=== PATIENT | female | born 1960 | race Caucasian/White ===

== ENCOUNTER 2020-07-17 23:56 | Emergency (ER) | payer MEDICAID ==
[~2020-07-17] VITALS: Ht 165.1 cm; Wt 56.7 kg
--- NOTE | 2020-07-18 00:18 | NUR ---
HIGH BLOOD SUGAR IN 600'S AT HOME, D/C FROM [facility] UNABLE TO CONTROL DM D/T CHANGE IN INSURANCE LAST A1C 13 TO ER BED 1
[2020-07-18] MEDS ORDERED: IV NS 0.9% 1,000 ML IV ONE ×2 (00:30→02:00)
[2020-07-18] MEDS ORDERED: INSULIN REGULAR, HUMAN 100 UNIT/ML 10 ML VIAL IV ONE ×2 (00:30→02:00)
[2020-07-18] MEDS ORDERED: INSULIN REGULAR, HUMAN 100 UNIT/ML 10 ML VIAL ONE (00:43)
[2020-07-18 00:52] LABS: BILIRUBIN,URINE NEGATIVE (NEGATIVE); COLOR,URINE YELLOW (YELLOW); LEUKOCYTE ESTERASE ,URINE NEGATIVE (NEGATIVE); NITRITE, URINE NEGATIVE (NEGATIVE); PROTEIN,URINE NEGATIVE (NEGATIVE); UGLUCOSE >=1000 mg/dL (NEGATIVE); UROBILINOGEN,URINE 0.2 EU/dL (0.2)
[2020-07-18 00:55] LABS: BASOPHILS % (AUTO) 0.9 % (0.0-2.0); EOSINOPHILS % (AUTO) 1.5 % (0.0-6.0); HEMATOCRIT 41 % (33-45); HEMOGLOBIN 13.4 g/dL (11.5-14.8); LYMPHOCYTES # (AUTO) 1.9 /CMM (0.8-4.8); LYMPHOCYTES % (AUTO) 33.7 % (20.0-44.0); MEAN CORPUSCULAR HGB CONC 33 g/dl (31.0-36.0); MEAN CORPUSCULAR VOLUME 93 fL (82-100); MONOCYTES # (AUTO) 0.5 /CMM (0.1-1.30); MONOCYTES % (AUTO) 8.2 % (2.0-12.0); NEUTROPHILS # (AUTO) 3.1 /CMM (1.8-8.9); NEUTROPHILS % (AUTO) 55.7 % (43.0-81.0); PLATELET COUNT (AUTO) 155 /CMM (150-450); RED BLOOD CELL COUNT(AUTO) 4.41 MIL/uL (4.0-5.2); WHITE BLOOD COUNT (AUTO) 5.7 K/uL (4.3-11.0)
[2020-07-18 01:02] LABS: BACTERIA,URINE None seen /HPF (None Seen); MUCUS,URINE Few /LPF (None Seen); RBC,URINE 0-2 /HPF (0-2); SQUAMOUS EPITHELIAL CELL,UR Moderate /HPF (None Seen)
[2020-07-18 01:22] LABS: CALCIUM, SERUM 8.9 mg/dL (8.5-10.1); CARBON DIOXIDE 25 mmol/L (21-32); CHLORIDE 95 mmol/L (98-107); CREATININE 1.1 mg/dL (0.6-1.3); POTASSIUM 4.2 mmol/L (3.5-5.1); SODIUM SERUM 132 mmol/L (136-145); UREA NITROGEN, BLOOD 24 mg/dL (7-18)
[2020-07-18 01:25] LABS: ALANINE AMINOTRANSFERASE 57 U/L (12-78); ALBUMIN 3.5 g/dL (3.4-5.0); ALKALINE PHOSPHATASE 104 U/L (46-116); ASPARTATE AMINOTRANSFERASE 31 U/L (15-37); BILIRUBIN,TOTAL 0.3 mg/dL (0.2-1.0); GLUCOSE 615 mg/dL (74-106); TOTAL PROTEIN, SERUM 6.6 g/dL (6.4-8.2)
--- NOTE | 2020-07-18 02:33 | NUR ---
IV removed. Catheter intact and site benign. Pressure and 4x4 applied to site. No bleeding noted.Patient discharged to home in stable condition. Written and verbal after care instructions given. Patient verbalizes understanding of instruction.
[2020-07-18 02:34] VITALS: BP 145/71
== END 2020-07-18 02:34 | disposition home or self-care (01) ==
LOC: ER 07-18 00:01
DX: E11.65 Type 2 diabetes mellitus with hyperglycemia (principal); I10 Essential (primary) hypertension; E78.5 Hyperlipidemia, unspecified; Z91.14 Patient's other noncompliance with medication regimen
CPT/HCPCS: 36415; 71045; 80053; 81001; 82010; 82962 ×3; 85025; 87086; 93005; 96361; 96374; 96376; 99285; J1815; J7030

== ENCOUNTER 2020-08-28 17:14 | Emergency (ER) | payer MEDICAID ==
[~2020-08-28] VITALS: Ht 165.1 cm; Wt 61.2 kg
[2020-08-28 17:25] VITALS: BP 105/60
[2020-08-28] MEDS ORDERED: CEPH500T PO (17:57)
[2020-08-28] MEDS ORDERED: ACET-2605 PO (17:57)
[2020-08-28] MEDS ORDERED: BACI3.5O23 OP (17:57)
--- NOTE | 2020-08-28 18:18 | NUR ---
Wound cleaned/neosporin/splint applied as ordered Patient discharged to home in stable condition. Written and verbal after care instructions given. Patient verbalizes understanding of instruction.
== END 2020-08-28 18:19 | disposition home or self-care (01) ==
LOC: ER 17:15
DX: S61.213A Laceration without foreign body of left middle finger without damage to nail, initial encounter (principal); I10 Essential (primary) hypertension; E78.5 Hyperlipidemia, unspecified; E11.9 Type 2 diabetes mellitus without complications; W23.0XXA Caught, crushed, jammed, or pinched between moving objects, initial encounter; Y93.89 Activity, other specified; Y92.89 Other specified places as the place of occurrence of the external cause; Y99.8 Other external cause status
CPT/HCPCS: 73140-TC

== ENCOUNTER 2021-09-29 18:47 | Emergency (ER) | payer MEDICAID ==
[~2021-09-29] VITALS: Ht 165.1 cm; Wt 74.8 kg
[~2021-09-29 18:47] MED LIST: ACET-2605 PO; BACI3.5O23 OP; CEPH500T PO
--- NOTE | 2021-09-29 19:05 | NUR ---
Recieved pt 61yrs female accompany by lakesha c/o Matthew since yesterday no vomition genralized weekness
--- NOTE | 2021-09-29 19:20 | NUR ---
seen by DR Boudreaux
--- NOTE | 2021-09-29 19:27 | NUR ---
HAND OFF TO JONATHAN ABDALLA
[2021-09-29] MEDS ORDERED: ONDANSETRON HCL/PF 4 MG/2 ML VIAL ONE (19:28)
[2021-09-29] MEDS ORDERED: IV NS 0.9% 1,000 ML BAG IV ONE (19:30)
[2021-09-29] MEDS ORDERED: ONDANSETRON HCL/PF 4 MG/2 ML VIAL IVP ONE (19:30)
--- NOTE | 2021-09-29 19:30 | NUR ---
20G IV LINE ESTABLISHED AT [facility]. BLOOD DRAWN AND SENT TO LAB.
--- NOTE | 2021-09-29 19:41 | NUR ---
XRAY AT BEDSIDE
[2021-09-29 19:51] LABS: BILIRUBIN,URINE MODERATE (NEGATIVE); COLOR,URINE YELLOW (YELLOW); LEUKOCYTE ESTERASE ,URINE NEGATIVE (NEGATIVE); NITRITE, URINE NEGATIVE (NEGATIVE); PH,URINE 5.5 (5.0-8.0); PROTEIN,URINE TRACE mg/dl (NEGATIVE); UGLUCOSE >=1000 mg/dL (NEGATIVE); UROBILINOGEN,URINE 0.2 EU/dL (0.2)
[2021-09-29 19:59] LABS: ALBUMIN 3.9 g/dL (3.4-5.0); BILIRUBIN,DIRECT 0.1 mg/dL (0.0-0.2); BILIRUBIN,TOTAL 0.5 mg/dL (0.2-1.0); CALCIUM, SERUM 9.6 mg/dL (8.5-10.1); POTASSIUM 3.7 mmol/L (3.5-5.1); TOTAL PROTEIN, SERUM 7.8 g/dL (6.4-8.2)
[2021-09-29 20:02] LABS: BASOPHILS # (AUTO) 0.1 K/uL (0.0-0.2); BASOPHILS % (AUTO) 0.7 % (0.0-2.0); EOSINOPHILS % (AUTO) 0.7 % (0.0-6.0); HEMATOCRIT 42 % (33-45); HEMOGLOBIN 13.6 g/dL (11.5-14.8); LYMPHOCYTES # (AUTO) 2.2 K/uL (0.8-4.8); LYMPHOCYTES % (AUTO) 28.9 % (20.0-44.0); MEAN CORPUSCULAR HGB CONC 33 g/dl (31.0-36.0); MEAN CORPUSCULAR VOLUME 84 fL (82-100); MONOCYTES # (AUTO) 0.5 K/uL (0.1-1.30); MONOCYTES % (AUTO) 6.9 % (2.0-12.0); NEUTROPHILS # (AUTO) 4.8 K/uL (1.8-8.9); NEUTROPHILS % (AUTO) 62.8 % (43.0-81.0); PLATELET COUNT (AUTO) 260 K/uL (150-450); RED BLOOD CELL COUNT(AUTO) 4.98 MIL/uL (4.0-5.2); WHITE BLOOD COUNT (AUTO) 7.6 K/uL (4.3-11.0)
[2021-09-29 20:04] LABS: BACTERIA,URINE None seen /HPF (None Seen); WBC,URINE 0-2 /HPF (0-3)
--- NOTE | 2021-09-29 20:30 | NUR ---
Patient discharged to home in stable condition. Written and verbal after care instructions given. Patient verbalizes understanding of instruction. IV line removed and PT ambulatory with steady gait.
[2021-09-29] MEDS ORDERED: FAMO-131 PO (21:00)
[2021-09-29] MEDS ORDERED: ONDA4TAB5 PO (21:00)
[2021-09-29 21:19] VITALS: BP 166/76
== END 2021-09-29 20:36 | disposition home or self-care (01) ==
LOC: ER 18:50
DX: R11.0 Nausea (principal); R53.1 Weakness; I10 Essential (primary) hypertension; E78.5 Hyperlipidemia, unspecified; E11.9 Type 2 diabetes mellitus without complications
CPT/HCPCS: 36415; 71045; 80048; 80076; 81001; 83690; 85025; 87086; 96361; 96374; 99284; J2405; J7030

== ENCOUNTER 2021-11-04 23:12 | Inpatient (IN) | payer MEDICAID ==
[~2021-11-04] VITALS: Ht 165.1 cm; Wt 68.0 kg
[~2021-11-04 23:12] MED LIST changes: +FAMO-131 PO; +ONDA4TAB5 PO
--- NOTE | 2021-11-04 23:35 | NUR ---
[id number] FROM HOME C/O MID ABDOMINAL PAIN X3 DAYS +SEVERE NAUSEA -V/D. DID NOT EAT FOR 3 DAYS.
[2021-11-05] MEDS ORDERED: ONDANSETRON HCL/PF 4 MG/2 ML VIAL ONE (00:10)
[2021-11-05] MEDS ORDERED: LORAZEPAM INJ 2 MG/ML VIAL ONE (00:10)
[2021-11-05] MEDS ORDERED: PANTOPRAZOLE 40 MG VIAL ONE (00:10)
[2021-11-05 00:30] LABS: BASOPHILS % (AUTO) 0.5 % (0.0-2.0); EOSINOPHILS % (AUTO) 0.3 % (0.0-6.0); HEMATOCRIT 41 % (33-45); HEMOGLOBIN 13.2 g/dL (11.5-14.8); LYMPHOCYTES # (AUTO) 1.8 K/uL (0.8-4.8); MEAN CORPUSCULAR HGB CONC 32 g/dl (31.0-36.0); MEAN CORPUSCULAR VOLUME 84 fL (82-100); MONOCYTES # (AUTO) 0.6 K/uL (0.1-1.30); MONOCYTES % (AUTO) 8.7 % (2.0-12.0); NEUTROPHILS # (AUTO) 4.4 K/uL (1.8-8.9); NEUTROPHILS % (AUTO) 64.5 % (43.0-81.0); PLATELET COUNT (AUTO) 232 K/uL (150-450); RED BLOOD CELL COUNT(AUTO) 4.91 MIL/uL (4.0-5.2); WHITE BLOOD COUNT (AUTO) 6.9 K/uL (4.3-11.0)
[2021-11-05] MEDS ORDERED: ONDANSETRON HCL/PF 4 MG/2 ML VIAL IVP ONE (00:30)
[2021-11-05] MEDS ORDERED: IV NS 0.9% 1,000 ML BAG IV ONE (00:30)
[2021-11-05] MEDS ORDERED: LORAZEPAM INJ 2 MG/ML VIAL IV ONE (00:30)
[2021-11-05] MEDS ORDERED: PANTOPRAZOLE 40 MG VIAL IV ONE (00:30)
--- NOTE | 2021-11-05 00:30 | NUR ---
IV CANNULA G20 INSERTED ON RIGHT AC. BLOOD DRAWN AND SENT TO LAB
--- NOTE | 2021-11-05 00:38 | NUR ---
JHOAN OF GALLBLADDER DONE AT BEDSIDE.
[2021-11-05 00:45] LABS: CALCIUM, SERUM 9.3 mg/dL (8.5-10.1); CREATININE 1.5 mg/dL (0.6-1.3); POTASSIUM 4.9 mmol/L (3.5-5.1)
[2021-11-05 00:50] LABS: ALBUMIN 3.9 g/dL (3.4-5.0); BILIRUBIN,DIRECT 0.1 mg/dL (0.0-0.2); BILIRUBIN,TOTAL 0.7 mg/dL (0.2-1.0); TOTAL PROTEIN, SERUM 7.9 g/dL (6.4-8.2)
--- NOTE | 2021-11-05 01:26 | NUR ---
CT SCAN DONE.
--- NOTE | 2021-11-05 01:28 | NUR ---
[facility] [phone]
--- NOTE | 2021-11-05 01:30 | NUR ---
COVID SWAB DONE AND SENT TO LAB
--- NOTE | 2021-11-05 02:40 | NUR ---
ABG DONE AT BEDSIDE. RESULT GIVEN TO DR Radha MORA
--- NOTE | 2021-11-05 02:56 | NUR ---
RT ABG DONE, RESULTS GIVEN TO RM SANTACRUZ
--- NOTE | 2021-11-05 03:00 | NUR ---
CLIENT SUPPORT CONSULTANT AT BEDSIDE.
[2021-11-05 03:01] LABS: ABG BASE EXCESS -12.4 mmol/L; ABG PCO2 31.6 mmHg (35.0-45.0); ABG PO2 94.5 mmHg (75.0-100.0); COHb 0.4 % (0.5-1.5); MetHb 0.5 % (0.0-1.5); O2Hb 95.3 % (94.0-97.0); SITE, ABG Right Radial; VENT MODE, BG ROOM AIR
[2021-11-05 03:21] LABS: BILIRUBIN,URINE LARGE (NEGATIVE); COLOR,URINE YELLOW (YELLOW); LEUKOCYTE ESTERASE ,URINE NEGATIVE (NEGATIVE); NITRITE, URINE NEGATIVE (NEGATIVE); PROTEIN,URINE NEGATIVE (NEGATIVE); UGLUCOSE >=1000 mg/dL (NEGATIVE); UROBILINOGEN,URINE 0.2 EU/dL (0.2)
--- NOTE | 2021-11-05 05:10 | NUR ---
ACCUCHECK DONE PER REQUEST BY [facility] [employer]. 142mg/dl. DR MORA MADE AWARE
--- NOTE | 2021-11-05 05:15 | NUR ---
ACCUCHECK 142mg/dl, DR MORA MADE AWARE.
[2021-11-05] MEDS ORDERED: INSULIN REGULAR, HUMAN 100 UNIT/ML 10 ML VIAL ONE (05:20)
[2021-11-05] MEDS ORDERED: IV PREMIX D5 1/2NS + KCL 1,000 ML IV ONE ×2 (05:21→05:30)
--- NOTE | 2021-11-05 05:26 | NUR ---
DR. JUDD ON THE PHONE [facility] DR. MORA
--- NOTE | 2021-11-05 05:26 | NUR ---
Sunny hahn in [facility] - 11/05/[address] JUDD ON THE PHONE [facility] DR. JUDD
[2021-11-05] MEDS ORDERED: INSULIN REGULAR, HUMAN 100 UNIT in IV NS 0.9% 99 ML IV PRN ×2 (05:30)
--- NOTE | 2021-11-05 05:30 | NUR ---
KCL INFUSION and INSULIN INFUSION STARTED.
[2021-11-05] MEDS ORDERED: ATOR20TA PO (05:45)
[2021-11-05] MEDS ORDERED: FENO43CA6 PO (05:45)
[2021-11-05] MEDS ORDERED: LISI40TA13 PO (05:45)
[2021-11-05] MEDS ORDERED: INSU100I34 SQ (05:45)
[2021-11-05] MEDS ORDERED: METO25TA6 PO (05:45)
[2021-11-05] MEDS ORDERED: ESCI10TA PO (05:45)
[2021-11-05] MEDS ORDERED: INSU100I26 SQ (05:45)
--- NOTE | 2021-11-05 06:30 | NUR ---
LATEST ACCUCHECK 175mg/dl.
[2021-11-05 06:42] LABS: BACTERIA,URINE 1+ /HPF (None Seen); RBC,URINE 0-2 /HPF (0-2)
--- NOTE | 2021-11-05 06:43 | NUR ---
DR JUDD AT BEDSIDE. MADE AWARE
--- NOTE | 2021-11-05 06:49 | NUR ---
Sunny hahn in [facility] - 11/05/21 at [address] JUDD WANTS BMP NOW. CALLED PHARMACY.
--- NOTE | 2021-11-05 06:50 | NUR ---
DR JUDD WANTS BMP STAT. CALLED LAB.
--- NOTE | 2021-11-05 07:15 | NUR ---
REPORT GIVEN TO RM BAHENA
[2021-11-05 07:30] LABS: CALCIUM, SERUM 8.8 mg/dL (8.5-10.1); CREATININE 1.3 mg/dL (0.6-1.3); MAGNESIUM 1.8 mg/dL (1.8-2.4); POTASSIUM 4.3 mmol/L (3.5-5.1)
[2021-11-05] MEDS ORDERED: DEXTROSE 50%-WATER 50 ML DISP.SYRIN IV PRN (07:30)
[2021-11-05] MEDS ORDERED: IV NS 0.9% 1,000 ML IV ONE (07:30)
[2021-11-05] MEDS ORDERED: ACETAMINOPHEN ES 500 MG TABLET PO PRN (07:30)
[2021-11-05] MEDS ORDERED: Potassium Chloride 10 MEQ in IV NS 0.9% 1,000 ML IV PRN (07:30)
[2021-11-05] MEDS ORDERED: *INSULIN REGULAR(HUMULIN R)HUM 100 UNIT/ML VIAL SQ PRN (07:30)
[2021-11-05] MEDS: BLOOD SUGAR DIAGNOSTIC 1 EACH STRIP VI SCH ×4 (07:49→22:57)
[2021-11-05] MEDS ORDERED: MORPHINE SULFATE INJ 4 MG/ML DISP.SYRIN IV PRN (09:00)
[2021-11-05] MEDS ORDERED: FAMOTIDINE (20 MG) 20 MG TABLET PO SCH (09:00)
--- NOTE | 2021-11-05 09:23 | NUR ---
GOT BED 320-2
--- NOTE | 2021-11-05 09:45 | NUR ---
PT TRANSFERRED TO 320/2. PT STABLE AT THIS TIME REPORT GIVEN TO CHARGE NURSE, TEENA ABDALLA.
--- NOTE | 2021-11-05 10:20 | NUR ---
SEWER HAND NOTES ADMITTED THIS 61 Y/O FEMALE PATIENT FROM E. TRANSPORTED VIA GURNEY. PATIENT IS ALERT AND ORIENTED X4, VERBALLY RESPONSIVE, ABLE TO MAKE NEEDS KNOWN. STABLE ON ROOM AIR. DENIES ANY PAIN AT THIS TIME. PATIENT ORIENTED TO STAFF AND ROOM. NOTED WITH IV ACCESS ON RIGHT ANTECUBITAL AREA #20G AND LEFT HAND #20G, INTACT AND PATENT. PLACED PATIENT ON OUTSIDE PLANT CABLE ENGINEER WITH SINUS READING. PATIENT'S SKIN GENERALLY INTACT. ABDOMEN SOFT, NON-TENDER, LUNGS CLEAR TO AUSCULTATION. SAFETY MEASURE IN PLACE. BED IN LOWEST AND LOCKED POSITION, SIDE RAILS UP X2, CALL LIGHT PLACED WITHIN EASY REACH. WILL CONTINUE TO MONITOR PATIENT.
[2021-11-05] MEDS: CEFTRIAXONE 1 G in IV D5W 50 ML IV SCH (10:36)
[2021-11-05] MEDS: Potassium Chloride 10 MEQ in IV NS 0.9% 1,000 ML IV SCH (10:36)
[2021-11-05] MEDS: PANTOPRAZOLE 40 MG VIAL IV SCH ×2 (10:49→16:15)
[2021-11-05] MEDS: ATORVASTATIN 10 MG TABLET PO SCH (10:49)
[2021-11-05] MEDS: ESCITALOPRAM OXALATE (10 MG) 10 MG TABLET PO SCH (10:50)
[2021-11-05] MEDS: INSULIN REGULAR, HUMAN 100 UNIT/ML 3 ML VIAL SQ PRN ×2 (11:48→18:13)
[2021-11-05 12:00] VITALS: BP 147/66
[2021-11-05 12:49] LABS: CALCIUM, SERUM 7.6 mg/dL (8.5-10.1); CREATININE 1.8 mg/dL (0.6-1.3); POTASSIUM 3.2 mmol/L (3.5-5.1)
[2021-11-05 18:15] VITALS: BP 139/69
--- NOTE | 2021-11-05 18:42 | NUR ---
RN CLOSING NOTES PATIENT IN BED AWAKE, A/O X4. NO SIGNS OF ACUTE DISTRESS NOTED. REMAINS STABLE ON ROOM AIR. NO SOB NOTED. DENIES ANY PAIN. WITH NS + 10 MEQ KCL RUNNING ON LEFT HAND PERIPHERAL LINE, #20G. TELE MONITOR SHOWS SINUS RHYTHM, HR @73. SAFETY MEASURE MAINTAINED. WILL ENDORSE TO NEXT SHIFT FOR CONTINUITY OF CARE..
--- NOTE | 2021-11-05 19:35 | NUR ---
CORPORATE EXECUTIVE OPENING NOTES RECEIVED PATIENT IN BED; AWAKE, ALERT AND ORIENTED X4. BREATHING IS EVEN AND NONLABORED. ON ROOM AIR; WELL TOLERATED. IN NO ACUTE DISTRESS NOTED. DENIES ANY PAIN OR DISCOMFORT OF THIS TIME. ON TELEMETRY MONITORING WITH READING OF SR HR 75 BPM. WITH IV FLUIDS ON RIGHT ANTECUBITAL G#20 INFUSING WITH NS + 10 MEQ KCL REGULATED @ 100ML/HR; PATENT, INTACT AND FLUSHES WELL. ABLE TO MAKE NEEDS KNOWN. SAFETY MEASURES IMPLEMENTED: CALL LIGHT AND TABLE WITHIN EASY REACH, SIDE RAILS UP X2, BED IN LOWEST LOCKED POSITION. WILL CONTINUE TO MONITOR
[2021-11-05 20:00] VITALS: BP 138/50
[2021-11-05] MEDS ORDERED: POTASSIUM CHLORIDE 20 MEQ TAB.PRT.SR PO ONE (20:30)
[2021-11-05] MEDS ORDERED: ZOLPIDEM TARTRATE 5 MG TABLET PO PRN (22:00)
[2021-11-05] MEDS: INSULIN GLARGINE, 100 UNIT/ML CARTRIDGE SQ SCH (22:00)
--- NOTE | 2021-11-05 22:00 | NUR ---
DEALER SUPPORT TECHNICIAN NOTES PATIENT KEPT ON REQUESTING TO REMOVE HER IV FLUIDS FOR NOW BECAUSE SHE KEPT ON URINATING FROM TIME TO TIME.
[2021-11-05] MEDS ORDERED: INSULIN GLARGINE, 100 UNIT/ML CARTRIDGE SQ ONE (23:40)
[2021-11-06] VITALS (8 sets, daily range): BP systolic 143–193; BP diastolic 63–79
[2021-11-06] MEDS: Potassium Chloride 10 MEQ in IV NS 0.9% 1,000 ML IV SCH ×4 (01:20→20:00)
[2021-11-06] MEDS: ONDANSETRON HCL/PF 4 MG/2 ML VIAL IV PRN ×3 (03:08→23:05)
[2021-11-06 06:14] LABS: BASOPHILS % (AUTO) 0.8 % (0.0-2.0); EOSINOPHILS % (AUTO) 1.4 % (0.0-6.0); HEMATOCRIT 34 % (33-45); HEMOGLOBIN 11.3 g/dL (11.5-14.8); LYMPHOCYTES # (AUTO) 1.7 K/uL (0.8-4.8); LYMPHOCYTES % (AUTO) 31.7 % (20.0-44.0); MEAN CORPUSCULAR HGB CONC 33 g/dl (31.0-36.0); MEAN CORPUSCULAR VOLUME 81 fL (82-100); MONOCYTES # (AUTO) 0.5 K/uL (0.1-1.30); MONOCYTES % (AUTO) 9.6 % (2.0-12.0); NEUTROPHILS % (AUTO) 56.5 % (43.0-81.0); PLATELET COUNT (AUTO) 179 K/uL (150-450); WHITE BLOOD COUNT (AUTO) 5.3 K/uL (4.3-11.0)
[2021-11-06] MEDS: BLOOD SUGAR DIAGNOSTIC 1 EACH STRIP VI SCH ×4 (06:32→21:47)
--- NOTE | 2021-11-06 06:53 | NUR ---
INFRASTRUCTURE CONSULTANT CLOSING NOTES PATIENT IS IN BED AWAKE, A/O X4. IN NO ACUTE DISTRESS NOTED. REMAINS STABLE ON ROOM AIR. DENIES ANY PAIN OR DISCOMFORT OF THIS TIME. ON TELEMETRY MONITORING WITH READING OF SINUS RHYTHM, HR [address] DUE MEDS GIVEN ORDERED. ENDORSED TO MORNING SHIFT FOR CONTINUITY OF CARE..
[2021-11-06 06:55] LABS: CALCIUM, SERUM 8.6 mg/dL (8.5-10.1); POTASSIUM 4.4 mmol/L (3.5-5.1)
[2021-11-06 06:56] LABS: MAGNESIUM 1.7 mg/dL (1.8-2.4)
--- NOTE | 2021-11-06 07:15 | NUR ---
CELL TENDER HELPER OPENING NOTE RECEIVED PATIENT IN BED AWAKE, ALERT AND ORIENTED X4. PATIENT IS ON ROOM AIR WITH EVEN AND NON LABORED BREATHING WITH NO SIGNS OF DISTRESS NOTED. PATIENT DENIES ANY PAIN OR DISCOMFORT OF THIS TIME. ON TELEMETRY MONITORING WITH READING OF SR HR 66 BPM. WITH IV FLUIDS OF NS PLUS 10 MEQ KCL RUNNING AT 125ML/HR. ON RIGHT ANTECUBITAL G#20 INFUSING WELL. ABLE TO MAKE NEEDS KNOWN. SAFETY MEASURES IMPLEMENTED: CALL LIGHT AND TABLE WITHIN EASY REACH, SIDE RAILS UP X2, BED IN LOWEST LOCKED POSITION. WILL CONTINUE TO MONITOR
[2021-11-06] MEDS: Magnesium 1GM/D5W 100ML PREMIX 100 ML IV SCH ×2 (09:24→10:13)
[2021-11-06] MEDS: PANTOPRAZOLE 40 MG VIAL IV SCH ×2 (09:24→17:00)
[2021-11-06] MEDS: ATORVASTATIN 10 MG TABLET PO SCH (09:25)
[2021-11-06] MEDS: ESCITALOPRAM OXALATE (10 MG) 10 MG TABLET PO SCH (09:26)
[2021-11-06] MEDS: CEFTRIAXONE 1 G in IV D5W 50 ML IV SCH (09:57)
[2021-11-06] MEDS ORDERED: QUET25TA PO (14:36)
[2021-11-06] MEDS ORDERED: PRAM0.258 PO (14:36)
[2021-11-06] MEDS ORDERED: FENO145T21 PO (14:36)
[2021-11-06] MEDS ORDERED: PREG-58 PO (14:36)
--- NOTE | 2021-11-06 14:42 | NUR ---
DIE MAKER APPRENTICE/MED RECON HOME MEDICATION INFORMATION OBTAINED FROM THE PATIENT AND VERIFIED WITH PATIENT PHARMACY. DR. JUDD NOTIFIED WITH ORDERS. CN MADE AWARE.
[2021-11-06] MEDS: PREGABALIN 25 MG CAPSULE PO SCH (17:00)
--- NOTE | 2021-11-06 18:50 | NUR ---
LICENSE CLERK CLOSING NOTE PATIENT IN BED AWAKE, ALERT AND ORIENTED X4. PATIENT IS ON ROOM AIR, TOLERATING WELL, NO SIGNS OF SOB/DISTRESS NOTED. PATIENT DENIES ANY PAIN AT THIS TIME. TELE MONITOR READING SR 66. IV FLUIDS NS PLUS 10 MEQ KCL RUNNING 125ML/HR @ RIGHT ANTECUBITAL G#20 INFUSING WELL. ABLE TO MAKE NEEDS KNOWN. SAFETY MEASURES IMPLEMENTED: CALL LIGHT AND TABLE WITHIN EASY REACH, SIDE RAILS UP X2, BED IN LOWEST LOCKED POSITION, WILL ENDORSE TO PM SHIFT
--- NOTE | 2021-11-06 19:30 | NUR ---
RN OPENING NOTES RECEIVED PT IN BED, AWAKE, FAMILY AT BEDSIDE. AOx4, ABLE TO MAKE NEEDS KNOWN. ON RA AND TOLERATING WELL. NO SOB NOTED. NO S/SX OF RESPIRATORY DISTRESS NOTED. IV ACCESS IN LAC #18 G RUNNING NS WITH 10 MEQ KCL @ 100 ML/HR. SAFETY PRECAUTIONS IN PLACE: BED IN LOWEST, LOCKED POSITION, SIDERAILS UPx2, AND BRAKES ON. TABLE AND CALL LIGHT WITHIN REACH. WILL CONTINUE TO MONITOR.
--- NOTE | 2021-11-06 19:45 | NUR ---
NM: GASTRIC EMPTYING WAS COMPLETED. TECH:RB
--- NOTE | 2021-11-06 19:55 | NUR ---
RN NOTES ADMINISTERED MORPHINE FOR PAIN AND HYPERTENSION. VS WNL. WILL CONTINUE TO MONITOR.
--- NOTE | 2021-11-06 21:05 | NUR ---
RN NOTES CONTACTED DR. JUDD ABOUT PT'S HYPERTENSION, 193/79 AND ORDERED CLONIDINE 0.1 MG PO Q6HRS PRN. ALSO SAID TO RESUME PATIENT'S HOME MEDS OF LISINOPRIL AND METOPROLOL. WILL CONTINUE TO MONITOR.
[2021-11-06] MEDS ORDERED: CLONIDINE HCL 0.1 MG TABLET PO PRN (21:30)
--- NOTE | 2021-11-06 21:51 | NUR ---
RN NOTES ADMINISTERED INSULIN PER MD ORDER. WILL CONTINUE TO MONITOR.
[2021-11-06] MEDS: INSULIN GLARGINE, 100 UNIT/ML CARTRIDGE SQ SCH (21:53)
[2021-11-06] MEDS ORDERED: QUETIAPINE FUMARATE 25 MG TABLET PO SCH (22:00)
[2021-11-06] MEDS ORDERED: PRAMIPEXOLE DI-HCL 0.25 MG TABLET PO SCH (22:00)
--- NOTE | 2021-11-06 23:09 | NUR ---
RN NOTES ADMINISTERED ZOFRAN FOR NAUSEA. VS WNL. WILL CONTINUE TO MONITOR.
[2021-11-07] VITALS: BP 148/73
--- NOTE | 2021-11-07 00:09 | NUR ---
RN NOTES ADMINISTERED TYLENOL FOR HEADACHE.
[2021-11-07] MEDS: Potassium Chloride 10 MEQ in IV NS 0.9% 1,000 ML IV SCH (02:48)
[2021-11-07 04:00] VITALS: BP 166/77
[2021-11-07] MEDS: BLOOD SUGAR DIAGNOSTIC 1 EACH STRIP VI SCH (06:30)
[2021-11-07] MEDS: INSULIN REGULAR, HUMAN 100 UNIT/ML 3 ML VIAL SQ PRN (06:32)
--- NOTE | 2021-11-07 06:47 | NUR ---
RN CLOSING NOTES PT IN BED,ASLEEP, AWAKENS TO VERBAL STIMULI. AOx4, ABLE TO MAKE NEEDS KNOWN. ON RA AND TOLERATING WELL. NO SOB NOTED. NO S/SX OF RESPIRATORY DISTRESS NOTED. IV ACCESS IN LAC #18 G RUNNING NS WITH 10 MEQ KCL @ 100 ML/HR. ALL ORDERS CARRIED OUT. ALL NEEDS MET. PT KEPT CLEAN AND DRY. SAFETY PRECAUTIONS IN PLACE: BED IN LOWEST, LOCKED POSITION, SIDERAILS UPx2, AND BRAKES ON. TABLE AND CALL LIGHT WITHIN REACH. WILL ENDORSE TO ONCOMING SHIFT FOR JAYASHREE.
[2021-11-07 07:38] LABS: CALCIUM, SERUM 9.4 mg/dL (8.5-10.1); CREATININE 0.9 mg/dL (0.6-1.3); MAGNESIUM 2.1 mg/dL (1.8-2.4); POTASSIUM 3.8 mmol/L (3.5-5.1)
[2021-11-07 08:00] VITALS: BP 161/79
[2021-11-07] MEDS ORDERED: ONDA4TAB5 PO (08:01)
[2021-11-07] MEDS ORDERED: CEPH500C2 PO (08:01)
[2021-11-07] MEDS ORDERED: PANT40TA2 PO (08:01)
[2021-11-07] MEDS: PREGABALIN 25 MG CAPSULE PO SCH (08:36)
[2021-11-07 08:38] VITALS: BP 161/79
[2021-11-07] MEDS: PANTOPRAZOLE 40 MG VIAL IV SCH (08:38)
[2021-11-07] MEDS: ATORVASTATIN 10 MG TABLET PO SCH (08:38)
[2021-11-07] MEDS: CEFTRIAXONE 1 G in IV D5W 50 ML IV SCH (08:43)
[2021-11-07] MEDS ORDERED: METOPROLOL TARTRATE 25 MG TABLET PO SCH (09:00)
[2021-11-07] MEDS ORDERED: LISINOPRIL (20MG) 20 MG TABLET PO SCH (09:00)
[2021-11-07] MEDS ORDERED: ESCITALOPRAM OXALATE (10 MG) 10 MG TABLET PO SCH (09:00)
[2021-11-07] MEDS ORDERED: FENOFIBRATE NANOCRYS (145 MG) 145 MG TABLET PO SCH (09:00)
--- NOTE | 2021-11-07 12:31 | NUR ---
SHIFT SUMMARY VSS, AFEBRILE, DENIES ANY PAIN THROUGHOUT THE SHIFT. AMBULATORY. SATURATING WELL ON RA. DISCHARGE INSTRUCTIONS, FOLLOW UPS AND HEALTH TEACHINGS GIVEN, PT VERBALIZES UNDERSTANDING. IV ACCESS/WRISTBAND REMOVED.
== END 2021-11-07 11:45 | disposition home or self-care (01) | DRG 815 ==
LOC: ER 23:15 → ICU 11-05 06:56 → TELE 11-05 09:25
PROVIDERS: ADMIT Internal Medicine; ATTEND Internal Medicine
DX: T73.0XXA Starvation, initial encounter (principal); N17.0 Acute kidney failure with tubular necrosis; E87.2 Acidosis; K29.70 Gastritis, unspecified, without bleeding; E86.0 Dehydration; N39.0 Urinary tract infection, site not specified; Z20.822 Contact with and (suspected) exposure to COVID-19; E78.5 Hyperlipidemia, unspecified; I10 Essential (primary) hypertension; E78.1 Pure hyperglyceridemia; Z79.4 Long term (current) use of insulin; Z79.84 Long term (current) use of oral hypoglycemic drugs; Z79.899 Other long term (current) drug therapy; X58.XXXA Exposure to other specified factors, initial encounter; F32.A Depression, unspecified; K44.9 Diaphragmatic hernia without obstruction or gangrene; Z98.890 Other specified postprocedural states; G89.29 Other chronic pain; Z82.49 Family history of ischemic heart disease and other diseases of the circulatory system; Z83.3 Family history of diabetes mellitus
CPT/HCPCS: 36415; 36600; 76705-TC; 80048-TC; 80076-TC; 81001; 82010-TC; 82693; 82803-TC; 82962-TC; 83605-TC; 83690-TC; 83735-TC; 84443-TC; 85025-TC; 85730-TC; 87081-TC; 87086-TC; 97116-TC; 97530-TC; A9541; C9113; C9803; G0378; G0480; J0696; J1815; J2060; J2270; J2405; J3475; J3480; J3490; J7030; J7050; J7060

== ENCOUNTER 2022-02-10 21:52 | Emergency (ER) | payer MEDICAID ==
[~2022-02-10] VITALS: Ht 165.1 cm; Wt 69.4 kg
[~2022-02-10 21:52] MED LIST changes: -ACET-2605 PO; +ATOR20TA PO; -BACI3.5O23 OP; +CEPH500C2 PO; -CEPH500T PO; +ESCI10TA PO; -FAMO-131 PO; +FENO145T21 PO; +PANT40TA2 PO; +PRAM0.258 PO; +PREG-58 PO; +QUET25TA PO
--- NOTE | 2022-02-10 22:30 | NUR ---
BIBS. TO ER BED 16. AAOX4. NOT IN RESP DISTRESS. AMBULATORY. CAME IN FOR ELEVATED BP PER PT HER SBP IS IN THE 200S. UPON TRIAGE PT'S BP WAS 204/94. PT ON MONITOR. AWAITING MD FOR EVAL
[2022-02-10 22:39] LABS: BASOPHILS % (AUTO) 0.8 % (0.0-2.0); EOSINOPHILS % (AUTO) 2.4 % (0.0-6.0); HEMATOCRIT 42 % (33-45); HEMOGLOBIN 13.6 g/dL (11.5-14.8); LYMPHOCYTES # (AUTO) 1.8 K/uL (0.8-4.8); LYMPHOCYTES % (AUTO) 36.7 % (20.0-44.0); MEAN CORPUSCULAR HGB CONC 33 g/dl (31.0-36.0); MEAN CORPUSCULAR VOLUME 83 fL (82-100); MONOCYTES # (AUTO) 0.4 K/uL (0.1-1.30); MONOCYTES % (AUTO) 8.7 % (2.0-12.0); NEUTROPHILS # (AUTO) 2.5 K/uL (1.8-8.9); NEUTROPHILS % (AUTO) 51.4 % (43.0-81.0); PLATELET COUNT (AUTO) 181 K/uL (150-450); RED BLOOD CELL COUNT(AUTO) 5.02 MIL/uL (4.0-5.2); WHITE BLOOD COUNT (AUTO) 4.9 K/uL (4.3-11.0)
[2022-02-10 22:51] LABS: CALCIUM, SERUM 9.8 mg/dL (8.5-10.1); CARBON DIOXIDE 28 mmol/L (21-32); CHLORIDE 101 mmol/L (98-107); CREATININE 0.9 mg/dL (0.6-1.3); GLUCOSE 271 mg/dL (74-106); POTASSIUM 3.8 mmol/L (3.5-5.1); SODIUM SERUM 136 mmol/L (136-145); UREA NITROGEN, BLOOD 17 mg/dL (7-18)
[2022-02-10 23:38] VITALS: BP 168/88
--- NOTE | 2022-02-10 23:38 | NUR ---
Patient discharged to home in stable condition. Written and verbal after care instructions given. Patient verbalizes understanding of instruction. Pt ambulatory with a steady gait
== END 2022-02-10 23:39 | disposition home or self-care (01) ==
LOC: ER 21:57
DX: I10 Essential (primary) hypertension (principal); E11.65 Type 2 diabetes mellitus with hyperglycemia; E78.5 Hyperlipidemia, unspecified; Z79.899 Other long term (current) drug therapy
CPT/HCPCS: 36415; 80048-TC; 82010-TC; 84484-TC; 85025-TC

== ENCOUNTER 2022-02-12 22:39 | Emergency (ER) | payer MEDICAID ==
[~2022-02-12] VITALS: Ht 165.1 cm; Wt 69.4 kg
--- NOTE | 2022-02-13 | NUR ---
BIBS. HEADACHE, NAUSEA AND ELEVATED BP. PATIENT ALERT AND ORIENTED X4. AMBULATORY WITH NON LABORED BREATHING IN BED 06 ON MONITOR AND POX, AWAITING MD ROJAS.
[2022-02-13] MEDS ORDERED: IBUPROFEN 600 MG TABLET ONE (00:30)
[2022-02-13] MEDS ORDERED: IBUPROFEN 600 MG TABLET PO ONE (00:30)
--- NOTE | 2022-02-13 00:47 | NUR ---
20G IV LAC.BLOOD SENT TO LAB
[2022-02-13 00:56] LABS: BASOPHILS % (AUTO) 0.6 % (0.0-2.0); EOSINOPHILS % (AUTO) 1.6 % (0.0-6.0); HEMATOCRIT 40 % (33-45); LYMPHOCYTES # (AUTO) 1.8 K/uL (0.8-4.8); MEAN CORPUSCULAR HGB CONC 33 g/dl (31.0-36.0); MEAN CORPUSCULAR VOLUME 83 fL (82-100); MONOCYTES # (AUTO) 0.6 K/uL (0.1-1.30); MONOCYTES % (AUTO) 8.7 % (2.0-12.0); NEUTROPHILS # (AUTO) 3.9 K/uL (1.8-8.9); NEUTROPHILS % (AUTO) 61.1 % (43.0-81.0); PLATELET COUNT (AUTO) 164 K/uL (150-450); RED BLOOD CELL COUNT(AUTO) 4.74 MIL/uL (4.0-5.2); WHITE BLOOD COUNT (AUTO) 6.3 K/uL (4.3-11.0)
[2022-02-13 01:37] LABS: CALCIUM, SERUM 9.4 mg/dL (8.5-10.1); CREATININE 0.8 mg/dL (0.6-1.3); POTASSIUM 3.6 mmol/L (3.5-5.1)
[2022-02-13] MEDS ORDERED: AMLO-213 PO (03:25)
--- NOTE | 2022-02-13 03:30 | NUR ---
Patient discharged to home in stable condition. Written and verbal after care instructions given. Patient verbalizes understanding of instruction.IV removed. Catheter intact and site benign. Pressure and 4x4 applied to site. No bleeding noted. Pt ambulatory with a steady gait
[2022-02-13 03:32] VITALS: BP 186/98
== END 2022-02-13 03:32 | disposition home or self-care (01) ==
LOC: ER 22:42
DX: I10 Essential (primary) hypertension (principal); R51.9 Headache, unspecified; E78.5 Hyperlipidemia, unspecified; E11.9 Type 2 diabetes mellitus without complications; F17.200 Nicotine dependence, unspecified, uncomplicated; Z98.890 Other specified postprocedural states; Z79.899 Other long term (current) drug therapy
CPT/HCPCS: 36415; 80048-TC; 84484-TC; 85025-TC

== ENCOUNTER 2023-01-21 09:59 | Inpatient (IN) | payer MEDICAID ==
[2023-01-21] VITALS: BP 175/79; TEMP 98.4; O2SAT 98
[~2023-01-21] VITALS: Ht 165.1 cm; Wt 74.8 kg
[~2023-01-21 09:59] MED LIST changes: +AMLO-213 PO
[2023-01-21] MEDS ORDERED: ONDANSETRON HCL/PF 4 MG/2 ML VIAL ONE (10:20)
[2023-01-21] MEDS ORDERED: LORAZEPAM INJ 2 MG/ML VIAL ONE (10:22)
[2023-01-21] MEDS ORDERED: LORAZEPAM INJ 2 MG/ML VIAL IV ONE (10:30)
[2023-01-21] MEDS ORDERED: ONDANSETRON HCL/PF 4 MG/2 ML VIAL IVP ONE (10:30)
[2023-01-21] MEDS ORDERED: IV NS 0.9% 1,000 ML BAG IV ONE (10:30)
[2023-01-21 10:51] LABS: BASOPHILS % (AUTO) 0.5 % (0.0-2.0); EOSINOPHILS # (AUTO) 0.1 K/uL (0.0-0.7); EOSINOPHILS % (AUTO) 0.9 % (0.0-6.0); HEMATOCRIT 44 % (33-45); HEMOGLOBIN 14.7 g/dL (11.5-14.8); LYMPHOCYTES # (AUTO) 1.1 K/uL (0.8-4.8); LYMPHOCYTES % (AUTO) 14.6 % (20.0-44.0); MEAN CORPUSCULAR HEMOGLOBIN 29 PG (26.0-33.0); MEAN CORPUSCULAR HGB CONC 33 g/dl (31.0-36.0); MEAN CORPUSCULAR VOLUME 87 fL (82-100); MONOCYTES # (AUTO) 0.3 K/uL (0.1-1.30); MONOCYTES % (AUTO) 3.8 % (2.0-12.0); NEUTROPHILS % (AUTO) 80.2 % (43.0-81.0); PLATELET COUNT (AUTO) 176 K/uL (150-450); RED BLOOD CELL COUNT(AUTO) 5.11 MIL/uL (4.0-5.2); RED CELL DISTRIBUTION WIDTH 15.4 % (11.5-15.0); WHITE BLOOD COUNT (AUTO) 7.4 K/uL (4.3-11.0)
[2023-01-21 11:00] LABS: CALCIUM, SERUM 10.2 mg/dL (8.5-10.1); CARBON DIOXIDE 22 mmol/L (21-32); CHLORIDE 98 mmol/L (98-107); GLUCOSE 305 mg/dL (74-106); POTASSIUM 3.9 mmol/L (3.5-5.1); SODIUM SERUM 135 mmol/L (136-145); UREA NITROGEN, BLOOD 22 mg/dL (7-18)
[2023-01-21 11:12] LABS: ALANINE AMINOTRANSFERASE 32 U/L (12-78); ALBUMIN 4.2 g/dL (3.4-5.0); ALKALINE PHOSPHATASE 80 U/L (46-116); ASPARTATE AMINOTRANSFERASE 24 U/L (15-37); BILIRUBIN,DIRECT 0.2 mg/dL (0.0-0.2); BILIRUBIN,TOTAL 0.6 mg/dL (0.2-1.0); TOTAL PROTEIN, SERUM 8.4 g/dL (6.4-8.2)
[2023-01-21] MEDS ORDERED: INSULIN REGULAR, HUMAN 100 UNIT/ML 10 ML VIAL SQ ONE (11:30)
[2023-01-21] MEDS ORDERED: INSULIN REGULAR, HUMAN 100 UNIT/ML 10 ML VIAL ONE (12:15)
[2023-01-21] MEDS ORDERED: DULA0.75 SQ (13:18)
[2023-01-21] MEDS ORDERED: CHOL100043 PO (13:18)
[2023-01-21] MEDS ORDERED: INSU100I26 SQ (13:18)
[2023-01-21] MEDS ORDERED: METO25TA4 PO (13:18)
[2023-01-21] MEDS ORDERED: LISI40TA13 PO (13:18)
[2023-01-21] MEDS ORDERED: METO10TA3 PO (13:18)
[2023-01-21] MEDS ORDERED: EMPA1TAB7 PO (13:18)
[2023-01-21] MEDS ORDERED: BACL20TA PO (13:18)
[2023-01-21] MEDS ORDERED: ONDANSETRON HCL/PF 4 MG/2 ML VIAL IV PRN (15:00)
[2023-01-21] MEDS ORDERED: PANTOPRAZOLE 40 MG VIAL IV SCH (15:00)
[2023-01-21] MEDS ORDERED: DEXTROSE 50%-WATER 50 ML DISP.SYRIN IV PRN (15:00)
[2023-01-21] MEDS ORDERED: ZOLPIDEM TARTRATE 5 MG TABLET PO PRN (15:00)
[2023-01-21] MEDS ORDERED: HYDROCODONE/APAP 5/325MG TABLET PO PRN (15:00)
[2023-01-21] MEDS ORDERED: CLONIDINE HCL 0.1 MG TABLET PO PRN (15:00)
[2023-01-21] MEDS ORDERED: CEFTRIAXONE 1 G in IV D5W 50 ML IV SCH (16:00)
[2023-01-21 16:34] VITALS: BP 173/91; TEMP 98.3; O2SAT 100
[2023-01-21] MEDS: Potassium Chloride 20 MEQ in IV NS 0.9% 1,000 ML IV SCH (17:00)
[2023-01-21] MEDS: METFORMIN 500 MG TABLET PO SCH (17:00)
[2023-01-21] MEDS: PREGABALIN 25 MG CAPSULE PO SCH (17:01)
[2023-01-21] MEDS: METOCLOPRAMIDE HCL 10 MG TABLET PO SCH (17:01)
[2023-01-21] MEDS: BLOOD SUGAR DIAGNOSTIC 1 EACH STRIP VI SCH ×2 (18:18→22:54)
[2023-01-21] MEDS: *INSULIN REGULAR(HUMULIN R)HUM 100 UNIT/ML VIAL SQ PRN ×2 (18:19→23:06)
[2023-01-21] MEDS ORDERED: LORAZEPAM 0.5 MG TABLET PO PRN (22:00)
[2023-01-21] MEDS ORDERED: PRAMIPEXOLE DI-HCL 0.25 MG TABLET PO SCH (22:00)
[2023-01-21] MEDS ORDERED: BACLOFEN (10 MG) 10 MG TABLET PO SCH (22:00)
[2023-01-21] MEDS ORDERED: INSULIN GLARGINE, 100 UNIT/ML CARTRIDGE SQ SCH (22:00)
[2023-01-21] MEDS: INSULIN REGULAR, HUMAN 100 UNIT/ML 3 ML VIAL SQ PRN (23:00)
[2023-01-21] MEDS: ACETAMINOPHEN ES 500 MG TABLET PO PRN (23:14)
[2023-01-22] VITALS: BP 151/71; TEMP 98; O2SAT 100
[2023-01-22 06:30] LABS: APPEARANCE,URINE CLEAR (CLEAR); BILIRUBIN,URINE NEGATIVE (NEGATIVE); BLOOD, URINE TRACE-INTA Ery/uL (NEGATIVE); COLOR,URINE YELLOW (YELLOW); KETONES,URINE TRACE mg/dL (NEGATIVE); LEUKOCYTE ESTERASE ,URINE NEGATIVE (NEGATIVE); NITRITE, URINE NEGATIVE (NEGATIVE); PROTEIN,URINE 2+ mg/dl (NEGATIVE); UGLUCOSE 3+ mg/dL (NEGATIVE); UROBILINOGEN,URINE 0.2 EU/dL (0.2)
[2023-01-22 06:40] LABS: ADD URINE CULTURE NO; BACTERIA,URINE Rare /HPF (None Seen); RBC,URINE 0-2 /HPF (0-2); SQUAMOUS EPITHELIAL CELL,UR Few /HPF (None Seen); WBC,URINE 0-2 /HPF (0-3)
[2023-01-22] MEDS: Potassium Chloride 20 MEQ in IV NS 0.9% 1,000 ML IV SCH (06:54)
[2023-01-22 07:23] LABS: BASOPHILS % (AUTO) 0.7 % (0.0-2.0); EOSINOPHILS # (AUTO) 0.1 K/uL (0.0-0.7); EOSINOPHILS % (AUTO) 1.6 % (0.0-6.0); HEMATOCRIT 40 % (33-45); HEMOGLOBIN 13.1 g/dL (11.5-14.8); LYMPHOCYTES # (AUTO) 1.8 K/uL (0.8-4.8); LYMPHOCYTES % (AUTO) 27.4 % (20.0-44.0); MEAN CORPUSCULAR HEMOGLOBIN 29 PG (26.0-33.0); MEAN CORPUSCULAR HGB CONC 33 g/dl (31.0-36.0); MEAN CORPUSCULAR VOLUME 88 fL (82-100); MONOCYTES # (AUTO) 0.8 K/uL (0.1-1.30); NEUTROPHILS # (AUTO) 3.7 K/uL (1.8-8.9); NEUTROPHILS % (AUTO) 58.3 % (43.0-81.0); PLATELET COUNT (AUTO) 162 K/uL (150-450); RED BLOOD CELL COUNT(AUTO) 4.57 MIL/uL (4.0-5.2); RED CELL DISTRIBUTION WIDTH 15.4 % (11.5-15.0); WHITE BLOOD COUNT (AUTO) 6.4 K/uL (4.3-11.0)
[2023-01-22 07:39] LABS: ALBUMIN 3.4 g/dL (3.4-5.0); BILIRUBIN,TOTAL 0.4 mg/dL (0.2-1.0); CALCIUM, SERUM 9.3 mg/dL (8.5-10.1); CREATININE 0.9 mg/dL (0.6-1.3); POTASSIUM 3.9 mmol/L (3.5-5.1)
[2023-01-22 08:00] VITALS: BP 172/87; TEMP 96.4; O2SAT 98
[2023-01-22] MEDS ORDERED: AMLODIPINE BESYLATE 5 MG TABLET PO SCH (09:00)
[2023-01-22] MEDS ORDERED: ATORVASTATIN 10 MG TABLET PO SCH (09:00)
[2023-01-22] MEDS ORDERED: FENOFIBRATE NANOCRYS (145 MG) 145 MG TABLET PO SCH (09:00)
[2023-01-22] MEDS ORDERED: METOPROLOL SUCCINATE 25 MG TAB.SR.24H PO SCH (09:00)
[2023-01-22] MEDS ORDERED: CHOLECALCIFEROL 1,000 UNIT TABLET (VIT D3) PO SCH (09:00)
[2023-01-22] MEDS ORDERED: EMPAGLIFLOZIN 25 MG TABLET PO SCH (09:00)
[2023-01-22] MEDS ORDERED: LISINOPRIL (20MG) 20 MG TABLET PO SCH (09:00)
[2023-01-22] MEDS ORDERED: PANTOPRAZOLE 40 MG TABLET.DR PO SCH (09:00)
[2023-01-22] MEDS ORDERED: ESCITALOPRAM OXALATE (10 MG) 10 MG TABLET PO SCH (09:00)
[2023-01-22] MEDS ORDERED: AMLO5TAB4 PO (09:01)
[2023-01-22] MEDS ORDERED: ESCI10TA PO (09:08)
[2023-01-22] MEDS ORDERED: EMPA1TAB7 PO (09:08)
[2023-01-22] MEDS ORDERED: INSU100I26 SQ (09:08)
[2023-01-22] MEDS ORDERED: METO25TA4 PO (09:08)
[2023-01-22] MEDS ORDERED: LISI40TA13 PO (09:08)
[2023-01-22] MEDS ORDERED: ATOR20TA PO (09:08)
[2023-01-22] MEDS ORDERED: FENO145T21 PO (09:08)
[2023-01-22] MEDS: PREGABALIN 25 MG CAPSULE PO SCH ×2 (09:24→12:15)
[2023-01-22] MEDS: METFORMIN 500 MG TABLET PO SCH (09:26)
[2023-01-22] MEDS: METOCLOPRAMIDE HCL 10 MG TABLET PO SCH ×2 (09:26→12:15)
[2023-01-22] MEDS: BLOOD SUGAR DIAGNOSTIC 1 EACH STRIP VI SCH ×2 (09:27→12:17)
[2023-01-22 09:30] VITALS: BP 172/87
[2023-01-22] MEDS: INSULIN REGULAR, HUMAN 100 UNIT/ML 3 ML VIAL SQ PRN ×2 (09:34→12:16)
[2023-01-22] MEDS: ACETAMINOPHEN ES 500 MG TABLET PO PRN (09:45)
[2023-01-25] MEDS ORDERED: Medication Not On Formulary EA (Dulaglutide (Trulicity) 0.75 MG) SQ SCH (15:00)
== END 2023-01-22 12:43 | disposition home or self-care (01) | DRG 420 ==
LOC: ER 10:13 → MEDSG1 13:21
PROVIDERS: ADMIT Internal Medicine; ATTEND Internal Medicine
DX: E11.65 Type 2 diabetes mellitus with hyperglycemia (principal); E78.5 Hyperlipidemia, unspecified; I10 Essential (primary) hypertension; F32.A Depression, unspecified; Z83.3 Family history of diabetes mellitus; Z91.199 Patient's noncompliance with other medical treatment and regimen due to unspecified reason; Z82.49 Family history of ischemic heart disease and other diseases of the circulatory system; Z79.4 Long term (current) use of insulin; R10.9 Unspecified abdominal pain
CPT/HCPCS: 36415; 70450-TC; 71045-TC; 80048-TC; 80053-TC; 80076-TC; 81001; 82962-TC; 84484-TC; 85025-TC; A4223; C9113; G0378; J0696; J1815; J2060; J2405; J3480; J7030; J7050; J7060; J8597